=== PATIENT | female | born 1995 | race Asian ===

== ENCOUNTER 2017-06-18 13:05 | Emergency (ER) | payer OTHER ==
[~2017-06-18] VITALS: Ht 154.9 cm; Wt 44.8 kg
[~2017-06-18 13:05] MED LIST: AMOXICILLIN875 MG PO; MOTRIN600 MG PO; ZITHROMAX500 MG PO
[2017-06-18 13:11] VITALS: BP 111/76
[2017-06-18] MEDS ORDERED: MOTRIN600 MG PO (13:45)
[2017-06-18] MEDS ORDERED: SKELAXIN800 MG PO (13:45)
== END 2017-06-18 14:02 | disposition home or self-care (01) ==
LOC: EME 13:05
DX: S40.021A Contusion of right upper arm, initial encounter (principal); V49.40XA Driver injured in collision with unspecified motor vehicles in traffic accident, initial encounter; Z88.0 Allergy status to penicillin
CPT/HCPCS: 99281; 99283